=== PATIENT | female | born 1945 | race Caucasian/White ===

== ENCOUNTER 2020-10-19 13:39 | Outpatient (CLI) | payer MEDICARE, BC, SELFPAY ==
--- NOTE | 2020-10-19 13:46 | MM_ITS ---
WS: [id number] BILATERAL SCREENING DIGITAL MAMMOGRAM WITH CAD HISTORY: SCREENING COMPARISON: 05/05/2019 and 02/12/2018 Bilateral CC and MLO views submitted. Computer aided detection analyzed. Breast composition: The breasts are heterogeneously dense, which may obscure small masses. No suspici ous masses, microcalcifications or architectural distortion. Focal asymmetry posterior to the LEFT ni pple is similar to the prior study from 2018. MM/[place] [id number] IMPRESSION: BI-RADS: 2-Benign FOLLOW UP: 1 Year Follow-up
== END 2020-10-19 13:40 | disposition home or self-care (01) ==
LOC: RADSHAW 13:44
PROVIDERS: Family Provider Family Medicine; PCP Family Medicine; Visit Provider Nurse Practitioner Family
DX: Z12.31 Encounter for screening mammogram for malignant neoplasm of breast (principal)
CPT/HCPCS: 77067

== ENCOUNTER 2021-11-15 10:56 | Inpatient (IN) | payer MEDICARE, BC, SELFPAY ==
[2021-11-15] VITALS (10 sets, daily range): BP systolic 104–149; BP diastolic 49–75; PULSE 65–89; RESP 16–20; TEMP 36.7–36.9; O2SAT 93–97
--- NOTE | 2021-11-15 11:34 | CT_ITS ---
WS: [id number] CT ABDOMEN AND PELVIS WITH CONTRAST HISTORY: RLQ abd pain TECHNIQUE: Imaging performed of the abdomen and pelvis with IV contrast. Single phase imaging of the abdomen. Coronal and sagittal reformats are submitted. All CT scans at [facility] use at [address] one of these dose optimization techniques: automated exposure control; mA and/or kV adjustment per patient size (includes targeted exams where dose is matched to clinical indication); or iterative re construction. IV CONTRAST: Omnipaque 300; 50 mL IV. Oral contrast: No DLP: 1625.05 mGy.cm COMPARISON: None available. Lower thorax: 2 Heart is normal size. No hiatal hernia. Liver/biliary system: Normal size with no intrahepatic dilatation. Gallbladder: Status post cholecystectomy. Pancreas: Normal size pancreas and pancreatic duct. No adjacent inflammation. Spleen: Normal size spleen. No mass or infarct. Adjacent splenule. Adrenal glands: Normal. Right kidney: Mild perinephric stranding. Left kidney: Mild perinephric stranding. Cortical 10 mm cyst mid kidney. Aorta: Normal. Lymphadenopathy: None. Free fluid: Very tiny amount of free fluid in the RIGHT lower quadrant. There is a very small 5 mm no dule along the RIGHT paracolic gutter which is very nonspecific. GI tract: Stomach and small bowel are not distended or obstructed. The appendix is dilated. The appen rosaline measures 9 mm in diameter. Inflammation at the base of the appendix extends into the cecum and th ere is also inflammation in the distal small bowel. Increased soft tissue in the cecum extends deep w ithin the pelvis. This is probably fluid retained fecal material. Abdominal wall: Unremarkable abdominal wall. No hernia. Pelvis: No large amount of free fluid in the pelvis. Nondistended urinary bladder. There is mild infl ammation in the RIGHT lower quadrant from the appendicitis. Bones: Unremarkable. CT/CT abdomen pelvis w con* [id number] IMPRESSION: 1. Acute appendicitis. The inflammation extends minimally into the cecum and t he terminal ileum. There is moderate distention of the cecum with soft tissue. This is probably fluid and fecal retention. Possibility of a superimposed mass resulting in appendicitis should be considered and evaluated during surgery. 2. Prior cholecystectomy.
--- NOTE | 2021-11-15 11:35 | ED_ITS ---
HPI - Abdominal Pain General: Chief Complaint: Abdominal Pain Stated Complaint: pain in abd right area Time Seen by Provider: 11/15/21 11:25 History of Present Illness: Patient comes in with vomiting, diarrhea, and abdominal pain. States that yesterday she woke up nauseated and dry heaving. States she was having epigastric/periumbilical cramping sharp abdominal pain that was constant with diarrhea. States that started to ease up, however the pain then migrated to the right side of her abdomen. Associated Symptoms: Reports diarrhea and nausea; Denies dysuria and fever(s) Review of Systems Const: Denies: fever(s) or body aches Eyes: Denies: change in vision or blurry vision ENMT: Denies: throat pain or odynophagia Card: Denies: chest pain or palpitations Resp: Denies: dyspnea or productive cough GI: Reports: abdominal pain, nausea and diarrhea : Denies: flank pain or dysuria Musc: Denies: neck pain or back pain Skin/Breast: Denies: rash or pruritus Neuro: Denies: headache(s) or numbness in extremities Psych: Denies: anxiety or change in appetite Endo: Denies: polyuria or excessive sweating PFSH ED PFSH: Medical History Atrial fibrillation GERD (gastroesophageal reflux disease) Surgical History S/P cholecystectomy S/P hysterectomy Family History Other CAD (coronary artery disease) Cancer Social History Smoking and tobacco status: never smoked Alcohol intake: current Alcohol intake frequency: other Physical Exam Const: COMMON NORMALS: no acute distress, patient oriented x3, healthy appearing and alert HENMT: COMMON NORMALS: normocephalic and atraumatic HEAD & SCALP: normocephalic and atraumatic Eye: COMMON NORMALS: Equal, round and reactive pupils present and EOMs intact bilaterally PUPIL: Yes Equal, round and reactive pupils present Neck/C-Spine: COMMON NORMALS: full ROM and supple Resp: COMMON NORMALS: normal respiratory effort, No retractions and No use of accessory muscles Cardio: COMMON NORMALS: regular rate and regular rhythm RATE: regular rate RHYTHM: regular rhythm GI: COMMON NORMALS: Soft to palpation PALPATION: Yes Soft to palpation OTHER: Right lower quadrant tenderness to palpation Back/Pelvis: COMMON NORMALS: thoracic and lumbar spine normal to inspection and no thoracic nor lumbar tenderness Extremity: COMMON NORMALS: normal to inspection and full ROM Neuro: COMMON NORMALS: patient oriented x3 SENSORIUM/ORIENTATION: Yes alert Psych: COMMON NORMALS: mental status grossly normal and cooperative Skin: COMMON NORMALS: no rashes or lesions noted and no wounds GENERAL SKIN EXAM: no rashes or lesions noted Course Vital Signs: Vital signs: Vital Signs Temperature 98.0 F 11/15/21 11:01 Pulse Rate 65 11/15/21 11:01 Respiratory Rate 16 11/15/21 11:01 Blood Pressure 129/75 11/15/21 11:01 Pulse Oximetry 95 11/15/21 11:01 MDM - Abdominal Pain Medical Decision Making Patient comes in with vomiting, diarrhea, and abdominal pain. States that yesterday she woke up nauseated and dry heaving. States she was having epi gastric/periumbilical cramping sharp abdominal pain that was constant with diarrhea. States that started to ease up, however the pain then migrated to the right side of her abdomen. On physical exam she has tenderness palpation the right lower quadrant. Will check labs, give IV fluids, treat nausea with IV Zofran, CT, and reassess. On reassessment I talked to the patient about the test results. I discussed the case with surgery. We will start her on antibiotics, and admit to medicine with surgery consult for further work-up and treatment of her acute appendicitis. Lab Data : 11/15/21 11:20 11/15/21 11:20 Labs/Radiology: Radiology Impressions Abdomen/Pelvis CT 11/15/21 11:34 IMPRESSION: 1. Acute appendicitis. The inflammation extends minimally into the cecum and the terminal ileum. There is moderate distention of the cecum with soft tissue. This is probably fluid and fecal retention. Possibility of a superimposed mass resulting in appendicitis should be considered and evaluated during surgery. 2. Prior cholecystectomy. Laboratory Results WBC 14.9 10^3/uL (4.0-10.0) H 11/15/21 11:20 RBC 4.64 10^6/uL (4.1-5.3) 11/15/21 11:20 Hgb 14.8 g/dL (11.5-15.3) 11/15/21 11:20 Hct 45.5 % (37.0-47.0) 11/15/21 11:20 MCV 98.1 fl (81-99) 11/15/21 11:20 MCH 31.9 pg (28.0-34.0) 11/15/21 11:20 MCHC 32.5 g/dL (30.0-36.0) 11/15/21 11:20 RDW 12.7 % (12.1-15.1) 11/15/21 11:20 Plt Count 335 10^3/cmm (130-400) 11/15/21 11:20 MPV 10.3 fL (7.4-10.4) 11/15/21 11:20 Neut % (Auto) 80.2 % 11/15/21 11:20 Lymph % (Auto) 12.4 % 11/15/21 11:20 [place] % (Auto) 6.5 % 11/15/21 11:20 Eos % (Auto) 0.3 % 11/15/21 11:20 Baso % (Auto) 0.3 % 11/15/21 11:20 Neut # (Auto) 11.90 10^3/uL (1.8-7.7) H 11/15/21 11:20 Lymph # (Auto) 1.9 10^3/uL (0.8-4.8) 11/15/21 11:20 [place] # (Auto) 1.0 10^3/uL (0.2-0.9) H 11/15/21 11:20 Eos # (Auto) 0.1 10^3/uL (0.0-0.8) 11/15/21 11:20 Baso # (Auto) 0.1 10^3/uL (0.0-0.1) 11/15/21 11:20 Nucleated RBC % (auto) 0 % 11/15/21 11:20 Nucleated RBCs # 0.0 /100WBC 11/15/21 11:20 Sodium 140 mmol/L (136-145) 11/15/21 11:20 Potassium 4.0 mmol/L (3.5-5.1) 11/15/21 11:20 Chloride 102 mmol/L (98-107) 11/15/21 11:20 Carbon Dioxide 28 mmol/L (22-29) 11/15/21 11:20 Anion Gap 14.0 (5-19) 11/15/21 11:20 BUN 10 mg/dL (8-23) 11/15/21 11:20 Creatinine 0.9 mg/dL (0.5-0.9) 11/15/21 11:20 GFR Calculation Not Reportable 11/15/21 11:20 Glucose 94 mg/dL (65-115) 11/15/21 11:20 Calculated Osmolality 289 mOsm/kg (285-295) 11/15/21 11:20 Calcium 9.6 mg/dL (8.5-10.5) 11/15/21 11:20 Total Bilirubin 0.7 mg/dL (0.15-1.2) 11/15/21 11:20 AST 54 U/L (0-32) H 11/15/21 11:20 ALT 69 U/L (0-33) H 11/15/21 11:20 Alkaline Phosphatase 100 IU/L (35-105) 11/15/21 11:20 Total Protein 8.4 g/dL (6.6-8.7) 11/15/21 11:20 Albumin 4.8 g/dL (3.5-5.2) 11/15/21 11:20 Globulin 3.6 g/dL (1.3-4.6) 11/15/21 11:20 Lipase 31 U/L (13-60) 11/15/21 11:20 Discharge Plan Discharge Patient Disposition: Admitted As Inpatient Clinical Impression: Acute appendicitis Condition: Stable Coding Level of Care Code 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
[2021-11-15] MEDS: ondansetron 2 mg/ML SDV 2 mL 4 MG IVP (11:41)
[2021-11-15] MEDS: sodium chloride 0.9% 1,000 ML 999 ML IV (11:41)
[2021-11-15 11:59] LABS: Basophils # 0.1 10^3/uL (0.0-0.1); Basophils % 0.3 %; Eosinophils # 0.1 10^3/uL (0.0-0.8); Eosinophils % 0.3 %; Hematocrit 45.5 % (37.0-47.0); Hemoglobin 14.8 g/dL (11.5-15.3); Lymphocytes # 1.9 10^3/uL (0.8-4.8); Lymphocytes % 12.4 %; Mean Corpuscular HGB Conc 32.5 g/dL (30.0-36.0); Mean Corpuscular Hemoglobin 31.9 pg (28.0-34.0); Mean Corpuscular Volume 98.1 fl (81-99); Mean Platelet Volume 10.3 fL (7.4-10.4); Monocytes % 6.5 %; Neutrophils % 80.2 %; Nucleated Red Blood Cells % 0 %; Platelet Count 335 10^3/cmm (130-400); Red Blood Count 4.64 10^6/uL (4.1-5.3); Red Cell Distribution Width 12.7 % (12.1-15.1); White Blood Count 14.9 10^3/uL (4.0-10.0)
[2021-11-15 12:13] LABS: Alanine Aminotransferase 69 U/L (0-33); Albumin Level 4.8 g/dL (3.5-5.2); Alkaline Phosphatase 100 IU/L (35-105); Aspartate Amino Transferase 54 U/L (0-32); Blood Urea Nitrogen 10 mg/dL (8-23); Calcium 9.6 mg/dL (8.5-10.5); Carbon Dioxide 28 mmol/L (22-29); Chloride 102 mmol/L (98-107); Globulin 3.6 g/dL (1.3-4.6); Glucose 94 mg/dL (65-115); Lipase 31 U/L (13-60); Osmolality Calculated 289 mOsm/kg (285-295); Sodium 140 mmol/L (136-145); Total Bilirubin 0.7 mg/dL (0.15-1.2); Total Protein 8.4 g/dL (6.6-8.7)
--- NOTE | 2021-11-15 14:23 | P.CONIM_ITS ---
Providers/Reason For Consult Consulting Physician/Specialty*: Nicholas Murray /Medicine Reason for Consult*: Management of Medical comorbid conditions Requesting Physician: Alec Alcaraz Attending Physician: Nicholas Murray MD Primary Care Provider: Shakira Maxwell MD History of Present Illness History of Present Illness Marge Burr is a 76 year old female with PMH of A.Fib on xaralto for Ac came in with c/o right lower quadrant abdominal pain started since yesterday morning, accompanied with nausea as well as dry heaves. Since yesterday the pain has progressively worsened. Upon arrival in the ER she was worked up for above-mentioned complaint Pertinent Imaging Studies: CT abdomen pelvis w con: 1.? Acute appendicitis. The inflammation extends minimally into the cecum and the terminal ileum. There is moderate distention of the cecum with soft tissue. This is probably fluid and fecal retention. Possibility of a superimposed mass resulting in appendicitis should be considered and evaluated during surgery. 2.? Prior cholecystectomy. Pertinent Labs : WBC: 14.9 H&H : 14.8/45 , PLT : 335 , Na: 140 K: 4 BUN/SCR : 10/0.9 Review of Systems General: Reports: 10 or more systems reviewed and unremarkable except in HPI and below Const: Denies: fever(s), chills, body aches, change in appetite or diaphoresis Card: Denies: palpitations, edema, swelling of feet/ankles, dyspnea on exertion, orthopnea or leg pain with exertion Resp: Denies: dyspnea, productive cough, wheezing or pain on inspiration GI: Reports: abdominal pain, nausea and vomiting; Denies: diarrhea or constipation : Denies: flank pain Musc: Denies: back pain, extremity pain or extremity swelling Neuro: Denies: headache(s), difficulty walking or confusion Medications/Allergies Home Medications Medication Instructions Recorded Confirmed Last Taken Type flecainide 50 mg tablet 50 mg PO Q12H #180 tab 08/07/21 11/15/21 11/15/21 Rx metoprolol tartrate 25 mg tablet 25 mg PO BID #180 tab 08/07/21 11/15/21 11/15/21 Rx rivaroxaban 20 mg tablet (Xarelto) 20 mg PO DAILY #90 tab 08/07/21 11/15/21 11/15/21 Rx Allergies Allergy/AdvReac Type Severity Reaction Status Date / Time morphine Allergy Unknown Verified 11/15/21 11:06 PFSH Acute PFSH: Medical History Atrial fibrillation GERD (gastroesophageal reflux disease) Surgical History S/P cholecystectomy S/P hysterectomy Family History Other CAD (coronary artery disease) Cancer Social History Smoking and tobacco status: never smoked Alcohol intake: current Alcohol intake frequency: other Vitals/I&O/Wt Last Vital Signs Temp 98.0 F 11/15/21 11:01 Pulse 65 11/15/21 11:01 Resp 16 11/15/21 11:01 BP 129/75 11/15/21 11:01 Pulse Ox 95 11/15/21 11:01 Weight last 48 hrs Weight 70.307 kg Physical Exam Const: COMMON NORMALS: patient oriented x3 HENMT: COMMON NORMALS: normocephalic and atraumatic HEAD & SCALP: normocephalic and atraumatic Resp: COMMON NORMALS: clear to auscultation bilaterally AUSCULTATION: clear to auscultation bilaterally Cardio: COMMON NORMALS: regular rate, regular rhythm, S1 normal heart sound present, S2 normal heart sound present, No gallops present (Cardio), No murmurs present (Cardio), No rub (Cardio) and Peripheral pulses 2+ throughout RATE: regular rate RHYTHM: regular rhythm HEART SOUNDS: S1 normal heart sound present and S2 normal heart sound present PERIPHERAL PULSES: Peripheral pulses 2+ throughout GI: AUSCULTATION: Yes normoactive bowel sounds RECTAL EXAM: deferred OTHER: Right lower quadrant tenderness present, no rebound tenderness. Extremity: COMMON NORMALS: no clubbing, cyanosis or edema and no pedal edema Neuro: COMMON NORMALS: patient oriented x3 Data : 11/15/21 11:20 11/15/21 11:20 A&P Assessment and plan (1) Atrial fibrillation: Status: Acute (2) GERD (gastroesophageal reflux disease): Status: Acute Qualifiers: Esophagitis presence: esophagitis presence not specified Qualified Code(s): K21.9 - Gastro-esophageal reflux disease without esophagitis (3) Acute appendicitis: Status: Acute Plan 76 year old female with PMH of A.Fib on xaralto for Ac came in with c/o right lower quadrant abdominal pain started since yesterday morning, accompanied with nausea as well as dry heaves. Assessment: Acute appendicitis: Surgery on board Atrial fibrillation : Patient took Eliquis yesterday evening. Currently Eliquis on hold Continue metoprolol and flecainide. CODE STATUS: Full code. Consult Attestations Medical Necessity Statement: Per Primary Team Time Spent in Patient Care: Greater than 35 minutes (>than 50% of time spent in counselling and/or direct pt care on unit) . Coding Level of Care Code Acute Motion Pictures Cartoonist for g Fwd Exam Detailed Diagnoses Atrial fibrillation I48.91 GERD (gastroesophageal reflux disease) K21.9 Esophagitis presence: esophagitis presence not specified Acute appendicitis K35.80
[2021-11-15] MEDS: piperacillin-tazobactam 3.375 GM in sodium chloride 0.9% (plus) 50 ML IV ×2 (14:32→21:01)
[2021-11-15] MEDS: sodium chloride 0.9% 1,000 ML 75 ML IV (15:21)
--- NOTE | 2021-11-15 17:18 | P.CONIM_ITS ---
Providers/Reason For Consult Consulting Physician/Specialty*: Hospitalist service Reason for Consult*: Acute appendicitis Attending Physician: Nicholas Murray MD Primary Care Provider: Shakira Maxwell MD History of Present Illness History of Present Illness Marge Burr is a 76 year old female who presented to the ER today with right lower quadrant pain since yesterday morning. Patient had some nausea and dry heaves but currently she would like to have something. No similar episodes in the past. She had some loose stools yesterday morning and initially thought she had food poisoning. The pain progressively worsened and therefore she presented to the ER for further evaluation where CT scan showed acute appendicitis. She is on Eliquis for atrial fibrillation. Patient is admitted since she took her last Eliquis yesterday evening and is currently on Zosyn Medications/Allergies Home Medications Medication Instructions Recorded Confirmed Last Taken Type flecainide 50 mg tablet 50 mg PO Q12H #180 tab 08/07/21 11/15/21 11/15/21 Rx metoprolol tartrate 25 mg tablet 25 mg PO BID #180 tab 08/07/21 11/15/21 11/15/21 Rx rivaroxaban 20 mg tablet (Xarelto) 20 mg PO DAILY #90 tab 08/07/21 11/15/21 11/15/21 Rx Allergies Allergy/AdvReac Type Severity Reaction Status Date / Time morphine Allergy Unknown Verified 11/15/21 11:06 Current Medications Generic Name Dose Route Start Last Admin Trade Name Freq PRN Reason Stop Dose Admin Sodium Chloride 1,000 mls @ 75 mls/hr 11/15/21 14:15 11/15/21 15:21 Sodium Chloride 0.9% IV 75 mls/hr .[id number] REYNOLD Administration PFSH Acute PFSH: Medical History Atrial fibrillation GERD (gastroesophageal reflux disease) Surgical History S/P cholecystectomy S/P hysterectomy Family History Other CAD (coronary artery disease) Cancer Social History Smoking and tobacco status: never smoked Alcohol intake: current Alcohol intake frequency: other Vitals/I&O/Wt Last Vital Signs Temp 98.5 F 11/15/21 15:04 Pulse 73 11/15/21 16:45 Resp 16 11/15/21 15:04 BP 107/61 11/15/21 15:04 Pulse Ox 94 11/15/21 16:45 11/15/21 11/15/21 11/15/21 06:59 14:59 22:59 Intake Total 1000 / 1000 Balance 1000 / 1000 Weight last 48 hrs Weight 155 lb Physical Exam Narrative: HEENT: Normocephalic Eye: Sclera /conjunctiva normal Abdomen: Soft to palpation, tender right lower quadrant with voluntary guarding, no rigidity Neurological: Oriented to place person and time Skin: Intact, no lesions appreciated on gross exam Data : 11/15/21 11:20 11/15/21 11:20 Micro: Microbiology 11/15/21 14:38 Blood Culture - Preliminary Blood SPECIMEN COLLECTED 11/15/21 14:36 Blood Culture - Preliminary Blood SPECIMEN COLLECTED A&P Assessment and plan (1) Acute appendicitis: 76 year old female who presents with right lower quadrant pain since yesterday morning, she was tender to palpation the right lower quadrant. WBC was 14.[address] abdomen pelvis showed acute appendicitis without evidence of perforation/abscess. We will plan for laparoscopic possible open appendectomy tomorrow since she took her last dose of Eliquis yesterday evening. Discussed with the patient about the higher risk of bleeding since she is on Eliquis. Also discussed with the patient the possibility of proceeding to surgery sooner if she were to develop any peritonitis or hemodynamic instability. Procedure, risks, benefits and alternatives have been discussed with the patient who wishes to proceed with surgery. Clear liquid diet N.p.o. after midnight Continue IV Zosyn Status: Acute (2) Atrial fibrillation: Stop Eliquis Status: Acute Coding Level of Care Code Acute Electrical Engineer for [facility] Diagnoses Acute appendicitis K35.80 Atrial fibrillation I48.91
[2021-11-15] MEDS: flecainide 100 mg Tablet 50 MG PO (18:31)
[2021-11-15] MEDS: metoprolol tartrate 25 mg Tablet PO (21:01)
[2021-11-16] VITALS (14 sets, daily range): BP systolic 99–155; BP diastolic 46–77; PULSE 0–79; RESP 14–19; TEMP 36.3–37.1; O2SAT 90–99
[2021-11-16] MEDS: flecainide 100 mg Tablet 50 MG PO (04:13)
[2021-11-16] MEDS: piperacillin-tazobactam 3.375 GM in sodium chloride 0.9% (plus) 50 ML IV ×3 (04:13→21:26)
[2021-11-16 04:37] LABS: Basophils % 0.4 %; Eosinophils # 0.1 10^3/uL (0.0-0.8); Eosinophils % 1.1 %; Hematocrit 35.6 % (37.0-47.0); Hemoglobin 11.3 g/dL (11.5-15.3); Lymphocytes # 1.5 10^3/uL (0.8-4.8); Lymphocytes % 15.7 %; Mean Corpuscular HGB Conc 31.7 g/dL (30.0-36.0); Mean Corpuscular Volume 97.8 fl (81-99); Mean Platelet Volume 10.2 fL (7.4-10.4); Monocytes # 0.7 10^3/uL (0.2-0.9); Monocytes % 7.1 %; Neutrophils # 7.09 10^3/uL (1.8-7.7); Neutrophils % 75.3 %; Nucleated Red Blood Cells % 0 %; Platelet Count 225 10^3/cmm (130-400); Red Blood Count 3.64 10^6/uL (4.1-5.3); Red Cell Distribution Width 12.5 % (12.1-15.1); White Blood Count 9.4 10^3/uL (4.0-10.0)
[2021-11-16 05:04] LABS: Anion Gap 13.6 (5-19); Blood Urea Nitrogen 8 mg/dL (8-23); Calcium 8.3 mg/dL (8.5-10.5); Carbon Dioxide 23 mmol/L (22-29); Chloride 104 mmol/L (98-107); Glucose 78 mg/dL (65-115); Osmolality Calculated 281 mOsm/kg (285-295); Potassium 3.6 mmol/L (3.5-5.1); Sodium 137 mmol/L (136-145)
[2021-11-16] MEDS: metoprolol tartrate 25 mg Tablet PO ×2 (09:29→21:26)
--- NOTE | 2021-11-16 09:51 | PC.CHAP ---
Pastoral Care Encounter/Spiritual Assessment Type of Contact [] Declined wood heel finisher visit [] Patient/Family/Request visit [] Outpatient visit [] Follow-up visit [] Physician referral [] Code/Alert [] Routine visit [] Staff referral [] Actively dying [] Patient sleeping [] Family support [] [] Out of room [] Palliative care [] [] Receiving care in room [] Pre-surgical visit [] Trauma [] Long length of stay [] ICU visit [] Other: Relational/Emotional Strength [] Patient feels connected with others/family/visitors/staff [] Distress [] Loneliness/isolation [] Abandonment Spirituality of Patient [] Person of [place]opatra [] Attends Church of their [place]opatra [] Believes in Prayer [] Reads Bible or Holiness materials [] There are Spiritual issues to be addressed Radio Rigger Interventions [] Prayer [] Active listening [] Non-anxious presence [] Spiritual/emotional support [] Crisis/trauma care [] Spiritual counseling [] Bereavement support [] Provided bereavement packet [] Provided Bible/devotional materials [] Provided toy/stuffed animal, coloring book to patient or family member [] Provided Communion [] Anointing/[place] [] Salvation [] Completed spiritual assessment [] Other: Impact on Illness or Injury [] Angry [] Fearful [] Anxious [] Often cries [] Exhaustion [] Unable to work [] Unable to attend nondenominational [] Unable to walk/stand [] Unable to read [] Unable to drive [] Unable to eat/drink [] Unable to sleep [] Unable to be with family [] Patient intubated [] Other: Summary Time spent with patient Pastoral Care Encounter/Spiritual Assessment Type of Contact [] Declined wood heel finisher visit [] Patient/Family/Request visit [] Outpatient visit [] Follow-up visit [] Physician referral [] Code/Alert [x] Routine visit [] Staff referral [] Actively dying [x] Patient sleeping [] Family support [] [] Out of room [] Palliative care [] [] Receiving care in room [] Pre-surgical visit [] Trauma [] Long length of stay [] ICU visit [] Other: Relational/Emotional Strength [] Patient feels connected with others/family/visitors/staff [] Distress [] Loneliness/isolation [] Abandonment Spirituality of Patient [] Person of [place] [] Attends Church of their [place] [] Believes in Prayer [] Reads Bible or Holiness materials [] There are Spiritual issues to be addressed Radio Rigger Interventions [] Prayer [] Active listening [] Non-anxious presence [] Spiritual/emotional support [] Crisis/trauma care [] Spiritual counseling [] Bereavement support [] Provided bereavement packet [] Provided Bible/devotional materials [] Provided toy/stuffed animal, coloring book to patient or family member [] Provided Communion [] Anointing/[place] [] Salvation [] Completed spiritual assessment [] Other: Impact on Illness or Injury [] Angry [] Fearful [] Anxious [] Often cries [] Exhaustion [] Unable to work [] Unable to attend nondenominational [] Unable to walk/stand [] Unable to read [] Unable to drive [] Unable to eat/drink [] Unable to sleep [] Unable to be with family [] Patient intubated [] Other: Summary Time spent with patient
--- NOTE | 2021-11-16 10:41 | PM.PN ---
Subjective Subjective: Patient was seen and examined this morning, complaining of abdominal pain on ambulation. No other acute events. Medications: Medication Review Details: Generic Name Dose Route Start Last Admin Trade Name Phuong PRN Reason Stop Dose Admin Flecainide Acetate 50 mg 11/15/21 17:00 11/16/21 04:13 Flecainide 100 M g Tablet PO 50 mg Q12H REYNOLD Administration Sodium Chloride 1,000 mls @ 75 ml s/hr 11/15/21 14:15 11/16/21 03:45 Sodium Chloride 0.9% IV Not Given .[id number] REYNOLD Piperacillin Sod/T azobactam 50 mls @ 12.5 mls /hr 11/15/21 20:30 11/16/21 04:13 Sod 3.375 gm/ So dium Chloride IV 12.5 mls/hr Q8H REYNOLD Administration Protocol Metoprolol Tartrat e 25 mg 11/15/21 21:00 11/16/21 09:29 Metoprolol Tartr ate 25 Mg Tablet PO 25 mg BID@0900,2100 REYNOLD Administration Vitals/I&O/Wt Last Vital Signs Temp 98.1 F 11/16/21 08:29 Pulse 66 11/16/21 08:29 Resp 16 11/16/21 08:29 BP 106/64 11/16/21 08:29 Pulse Ox 90 11/16/21 08:29 11/15/21 11/16/21 11/16/21 22:59 06:59 14:59 Intake Total 653.75 / 1653.75 370 / 3.75 Balance 653.75 / 1653.75 370 / 2022.75 Weight last 48 hrs Weight 70.307 kg Physical Exam Const: COMMON NORMALS: patient oriented x3 HENMT: COMMON NORMALS: normocephalic and atraumatic HEAD & SCALP: normocephalic and atraumatic Resp: COMMON NORMALS: clear to auscultation bilaterally AUSCULTATION: clear to auscultation bilaterally Cardio: COMMON NORMALS: regular rate, regular rhythm, S1 normal heart sound present, S2 normal heart sound present, No gallops present (Cardio), No murmurs present (Cardio), No rub (Cardio) and Peripheral pulses 2+ throughout RATE: regular rate RHYTHM: regular rhythm HEART SOUNDS: S1 normal heart sound present and S2 normal heart sound present PERIPHERAL PULSES: Peripheral pulses 2+ throughout GI: AUSCULTATION: Yes normoactive bowel sounds RECTAL EXAM: deferred OTHER: Right lower quadrant tenderness present, no rebound tenderness. Extremity: COMMON NORMALS: no clubbing, cyanosis or edema and no pedal edema Neuro: COMMON NORMALS: patient oriented x3 Data : 11/16/21 03:32 11/16/21 03:32 Micro: Microbiology 11/15/21 14:38 Blood Culture - Preliminary Blood SPECIMEN COLLECTED 11/15/21 14:36 Blood Culture - Preliminary Blood SPECIMEN COLLECTED A&P Assessment and plan (1) Atrial fibrillation: Status: Acute (2) GERD (gastroesophageal reflux disease): Status: Acute Qualifiers: Esophagitis presence: esophagitis presence not specified Qualified Code(s): K21.9 - Gastro-esophageal reflux disease without esophagitis (3) Acute appendicitis: Status: Acute Plan 76 year old female with PMH of A.Fib on xaralto for Ac came in with c/o right lower quadrant abdominal pain started since yesterday morning, accompanied with nausea as well as dry heaves. Assessment: Acute appendicitis: Surgery on board Atrial fibrillation : Patient took Eliquis yesterday evening. Currently Eliquis on hold Continue metoprolol and flecainide. CODE STATUS: Full code. Attestations Medical Necessity Statement*: Per primary team. Coding Level of Care Code Acute Sap Bw Bi Developer for [facility] Diagnoses Atrial fibrillation I48.91 GERD (gastroesophageal reflux disease) K21.9 Esophagitis presence: esophagitis presence not specified Acute appendicitis K35.80
[2021-11-16] MEDS: ondansetron 2 mg/ML SDV 2 mL 4 MG IVP ×2 (10:54→16:58)
[2021-11-16] MEDS: sodium chloride 0.9% 1,000 ML 30 ML IV (10:54)
--- NOTE | 2021-11-16 11:54 | PM.PN ---
Subjective Subjective: No issues overnight, has some nausea, pain in the lower abdomen when she moves Medications: Reviewed: Yes Vitals/I&O/Wt Last Vital Signs Temp 98.3 F 11/16/21 10:35 Pulse 63 11/16/21 10:35 Resp 18 11/16/21 10:35 BP 109/46 11/16/21 10:35 Pulse Ox 91 11/16/21 10:35 11/15/21 11/16/21 11/16/21 22:59 06:59 14:59 Intake Total 653.75 / 3.75 370 / 3.75 Balance 653.75 / 2022.75 370 / 2022.75 Weight last 48 hrs Weight 155 lb Physical Exam Narrative: Abdomen: Soft, tender, RLQ Data : 11/16/21 03:32 11/16/21 03:32 Micro: Microbiology 11/15/21 14:38 Blood Culture - Preliminary Blood SPECIMEN COLLECTED 11/15/21 14:36 Blood Culture - Preliminary Blood SPECIMEN COLLECTED A&P Assessment and plan (1) Acute appendicitis: Plan for laparoscopic possible open appendectomy Procedure, risks, benefits and alternatives have been discussed with the patient who wishes to proceed with surgery. Status: Acute Attestations Medical Necessity Statement*: Acute appendicitis Coding Level of Care Code Acute Stencil Sprayer for Fidencio Isaac Diagnoses Acute appendicitis K35.80
--- NOTE | 2021-11-16 15:14 | P.ANESASSM_ITS ---
Pre-Anesthetic Assessment Height/Weight: Height 1.65 m Weight 70.307 kg Temp Pulse Resp BP Pulse Ox 98.3 F 63 18 109/46 91 11/16/21 10:35 11/16/21 10:35 11/16/21 10:35 11/16/21 10:35 11/16/21 10:35 Preop Diagnosis: Acute appendicitis Operation Date: 11/16/21 13:00 Proposed Procedures p Laparoscopic Appendectomy(Not Applicable) - Jez Alcaraz MD Familial anesthetic complications: none Was Beta Alex taken within 24 hours: Yes Was Clonidine taken within 24 hours: N/A Last intake: Intake Last Liquid Date 11/16/21 Last Liquid Time 04:00 Last Solid Date 11/15/21 Last Solid Time 21:00 Social No alcohol and No tobacco Exam alert, oriented x 3, clear to auscultation bilaterally and regular rate & rhythm Airway Submandibular: within normal limits Cervical ROM: within normal limits Mallampati: Class II Dentition: full Comments: Comments: chipped teeth Pulmonary None reported CV/HEM Atrial Fibrillation None reported Hepatic None reported GI Gastroesophageal Reflux Disease appendicitis Metabolic None reported Musc/skel None reported Neuropsych None reported Anesthetic Plan ASA status: 3 (76 year old female with afib and GERD on anticoagulation ) Anesthesia: Anesthesia Evaluation and General Other: We discussed risk and benefits of general anesthesia including PONV, sore throat (sometimes severe), corneal abrasion, positioning and peripheral nerve injuries, life threatening allergic reaction, post operative ICU admission requiring prolonged intubation, stroke, heart attack, , and rare incidences of recall. Patient consents to proceed with general anesthesia. Risk of > 500 ml blood loss (7ml/kg in children): No Medications/Allergies Home Medications Medication Instructions Recorded Confirmed Last Taken Type flecainide 50 mg tablet 50 mg PO Q12H #180 tab 08/07/21 11/15/21 11/15/21 Rx metoprolol tartrate 25 mg tablet 25 mg PO BID #180 tab 08/07/21 11/15/21 11/15/21 Rx rivaroxaban 20 mg tablet (Xarelto) 20 mg PO DAILY #90 tab 08/07/21 11/15/2110/22 Rx Allergies Allergy/AdvReac Type Severity Reaction Status Date / Time morphine Allergy Unknown Verified 11/15/21 11:06 Current Medications Generic Name Dose Route Start Last Admin Trade Name Freq PRN Reason Stop Dose Admin Flecainide Acetate 50 mg 11/15/21 17:00 11/16/21 04:13 Flecainide 100 Mg Tablet PO 50 mg Q12H REYNOLD Administration Sodium Chloride 1,000 mls @ 75 mls/hr 11/15/21 14:15 11/16/21 03:45 Sodium Chloride 0.9% IV Not Given .[id number] REYNOLD Piperacillin Sod/Tazobactam 50 mls @ 12.5 mls/hr 11/15/21 20:30 11/16/21 15:04 Sod 3.375 gm/ Sodium Chloride IV Infused Q8H REYNOLD Infusion Protocol Sodium Chloride 1,000 mls @ 30 mls/hr 11/16/21 11:00 11/16/21 10:54 Sodium Chloride 0.9% IV 11/17/21 10:59 30 mls/hr .Q24H REYNOLD Administration Metoprolol Tartrate 25 mg 11/15/21 21:00 11/16/21 09:29 Metoprolol Tartrate 25 Mg Tablet PO 25 mg BID@0900,2100 REYNOLD Administration Ondansetron HCl 4 mg 11/16/21 10:48 11/16/21 10:54 Ondansetron 2 Mg/Ml Sdv 2 Ml IVP 4 mg Q5M PRN Administration NAUSEA AND VOMITING Additional Medication Information Generic Name Dose Route Start Last Admin Trade Name Coreyq PRN Reason Stop Dose Admin Flecainide Acetate 50 mg 11/15/21 17:00 11/16/21 04:13 Flecainide 100 Mg Tablet PO 50 mg Q12H REYNOLD Administration Sodium Chloride 1,000 mls @ 75 mls/hr 11/15/21 14:15 11/16/21 03:45 Sodium Chloride 0.9% IV Not Given .[id number] REYNOLD Piperacillin Sod/Tazobactam 50 mls @ 12.5 mls/hr 11/15/21 20:30 11/16/21 04:13 Sod 3.375 gm/ Sodium Chloride IV 12.5 mls/hr Q8H REYNOLD Administration Protocol Metoprolol Tartrate 25 mg 11/15/21 21:00 11/16/21 09:29 Metoprolol Tartrate 25 Mg Tablet PO 25 mg BID@0900,2100 REYNOLD Administration PENDING SALE TO [facility] Anesthesia Medical History Atrial fibrillation GERD (gastroesophageal reflux disease) Surgical History S/P cholecystectomy S/P hysterectomy Family History Other CAD (coronary artery disease) Cancer Social History Smoking and tobacco status: never smoked Alcohol intake: current Alcohol intake frequency: other Data Anesthesia : 11/16/21 03:32 11/16/21 03:32 Short CBC 11/15/21 11/16/21 Range/Units 11:20 03:32 WBC 14.9 H 9.4 (4.0-10.0) 10^3/uL Hgb 14.8 11.3 L (11.5-15.3) g/dL Hct 45.5 35.6 L (37.0-47.0) % MCV 98.1 97.8 (81-99) fl Plt Count 335 225 D (130-400) 10^3/cmm Neut % (Auto) 80.2 75.3 % Neut # (Auto) 11.90 H 7.09 (1.8-7.7) 10^3/uL BMP 11/15/21 11/16/21 11:20 03:32 Sodium 140 137 Potassium 4.0 3.6 Chloride 102 104 Carbon Dioxide 28 23 BUN 10 8 Creatinine 0.9 0.9 Glucose 94 78 Calcium 9.6 8.3 L Liver Function 11/15/21 Range/Units 11:20 Total Bilirubin 0.7 (0.15-1.2) mg/dL AST 54 H (0-32) U/L ALT 69 H (0-33) U/L Alkaline Phosphatase 100 (35-105) IU/L Albumin 4.8 (3.5-5.2) g/dL Microbiology 11/15/21 14:38 Blood Culture - Preliminary Blood NEGATIVE TO DATE 11/15/21 14:36 Blood Culture - Preliminary Blood NEGATIVE TO DATE Cardiac Studies: No Data to Display
--- NOTE | 2021-11-16 16:11 | PM.OP ---
Operative Report Date of procedure: November 16, 2021 Pre-op diagnosis: Acute appendicitis Post-op diagnosis: Acute appendicitis Procedure done: Laparoscopic appendectomy Specimens removed/disposition: Appendix Surgeon: Jez Alcaraz Anesthesia: General Condition: stable Disposition: PACU Procedure: The patient was taken to the Operating Room and intubated under general anesthesia after iv antibiotic had been administered. Using a 15 blade, a 1-cm infraumbilical incision was made and using open Escobar technique, the peritoneal cavity was entered. A 12mm port with balloon was placed and 15 mm of pneumoperitoneum was created and 10-mm 30 degree scope was introduced. Two separate 5mm ports were placed in the left lower quadrant and suprapubic area under direct visualization. The appendix was noted in the right lower quadrant and appeared acutely inflamed. Using [place] forceps, an opening was made in the mesoappendix near the base of the appendix. An Endo HARRISON stapler 45mm long 3.5mm blue load was introduced to divide the appendix at it's base. Using electrocautery, the mesoappendix including the appendicular artery was divided. Initially there was some bleeding from the appendicular artery which was controlled with cautery and 10 mm clips. There was no bleeding noted and the staple line appeared intact after the right lower quadrant was irrigated with saline. EndoCatch bag was introduced to remove the appendix. All three ports were removed under direct visualization and there was no bleeding noted on the port sites. 10 cc of 0.5% Marcaine was infiltrated at the port sites. The fascia at the umbilical port was closed using figure of eight 0-Vicryl sutures and subcutaneous tissue was approximated using 3-0 Vicryl and skin at all 3 port sites was closed using 4-0 Monocryl and Dermabond. The patient was extubated and transferred to recovery room in stable condition.
--- NOTE | 2021-11-16 16:43 | ANE.PACU2 ---
Inpatient post-anesthesia follow up: Airway intact: Yes Vital signs: Temperature 97.4 F Pulse Rate 76 Respiratory Rate 16 Blood Pressure 151/60 Pulse Oximetry 92 Oxygen Delivery Me thod [ Room Air Current Rate & Del tiana] Oxygen Delivery Me thod Room Air Oxygen Flow Rate 6 Fraction of Inspir ed Oxygen Hydration adequate: Yes Nausea and vomiting: No Pain level: 4 Mental status: Baseline
[2021-11-16] MEDS: HYDROcodone-acetaminophen 5-325 mg Tablet 1 TAB PO (16:58)
--- NOTE | 2021-11-16 21:55 | PC.NURSE ---
Straight cath procedure done, 500 ml of clear urine returned, patient tolerated well. Patient still attempting to void.
[2021-11-16] MEDS: phenol oral Spray 177 mL 2 SPRAY MUCOUS MEM (23:26)
[2021-11-17] VITALS: BP 107/69; PULSE 72; RESP 18; TEMP 36.8; O2SAT 93
[2021-11-17] MEDS: HYDROcodone-acetaminophen 5-325 mg Tablet 1 TAB PO (01:44)
[2021-11-17 04:00] VITALS: BP 120/59; PULSE 70; RESP 18; TEMP 37; O2SAT 93
[2021-11-17] MEDS: piperacillin-tazobactam 3.375 GM in sodium chloride 0.9% (plus) 50 ML IV (04:09)
[2021-11-17 05:04] LABS: Basophils % 0.2 %; Hemoglobin 12.3 g/dL (11.5-15.3); Lymphocytes # 0.6 10^3/uL (0.8-4.8); Lymphocytes % 5.8 %; Mean Corpuscular HGB Conc 33.2 g/dL (30.0-36.0); Mean Corpuscular Hemoglobin 32.1 pg (28.0-34.0); Mean Corpuscular Volume 96.6 fl (81-99); Mean Platelet Volume 9.7 fL (7.4-10.4); Monocytes # 0.5 10^3/uL (0.2-0.9); Monocytes % 5.1 %; Neutrophils # 8.85 10^3/uL (1.8-7.7); Neutrophils % 88.6 %; Nucleated Red Blood Cells % 0 %; Platelet Count 296 10^3/cmm (130-400); Red Blood Count 3.83 10^6/uL (4.1-5.3); Red Cell Distribution Width 12.3 % (12.1-15.1)
[2021-11-17 05:23] LABS: Blood Urea Nitrogen 10 mg/dL (8-23); Calcium 8.5 mg/dL (8.5-10.5); Carbon Dioxide 21 mmol/L (22-29); Chloride 105 mmol/L (98-107); Creatinine Clr Calc Pharmacy 60.6998; Glucose 109 mg/dL (65-115); Osmolality Calculated 288 mOsm/kg (285-295); Sodium 139 mmol/L (136-145)
[2021-11-17] MEDS: flecainide 100 mg Tablet 50 MG PO (05:41)
[2021-11-17 08:38] VITALS: BP 120/59; PULSE 70; RESP 18; TEMP 37; O2SAT 93
--- NOTE | 2021-11-17 12:06 | PM.DCS ---
Discharge Providers Date of Admission: 11/15/21 13:55 Date of Discharge: November 17, 2021 Attending Provider at Admission: Nicholas Murray MD Attending Provider at Discharge: Nicholas Murray MD Primary Care Provider: Shakira Maxwell MD Diagnoses at Discharge Discharge Diagnosis (1) Acute appendicitis: Status: Acute Reason for Visit Reason for Visit: pain in abd right area Hospital Course Hospital Course HPI: Marge Burr is a 76 year old female with PMH of A.Fib on xaralto for Ac came in with c/o right lower quadrant abdominal pain started since yesterday morning, accompanied with nausea as well as dry heaves. Since yesterday the pain has progressively worsened. Upon arrival in the ER she was worked up for above-mentioned complaint Pertinent Imaging Studies: CT abdomen pelvis w con: 1.? Acute appendicitis. The inflammation extends minimally into the cecum and the terminal ileum. There is moderate distention of the cecum with soft tissue. This is probably fluid and fecal retention. Possibility of a superimposed mass resulting in appendicitis should be considered and evaluated during surgery. 2.? Prior cholecystectomy. Pertinent Labs : WBC: 14.9 H&H : 14.8/45 , PLT : 335 , Na: 140? K: 4? BUN/SCR : 10/0.9 Hospital Course : Patient was admitted for the management of acute appendicitis post laparoscopic appendectomy. During the hospital stay was also managed for A. fib, she was continued on flecainide as well as metoprolol, Eliquis has been kept on hold till 11/18. She responded well to above medical and surgical management and was discharged in stable condition to home. Physical Exam Const: COMMON NORMALS: patient oriented x3 HENMT: COMMON NORMALS: normocephalic and atraumatic HEAD & SCALP: normocephalic and atraumatic Resp: COMMON NORMALS: clear to auscultation bilaterally AUSCULTATION: clear to auscultation bilaterally Cardio: COMMON NORMALS: regular rate, regular rhythm, S1 normal heart sound present, S2 normal heart sound present, No gallops present (Cardio), No murmurs present (Cardio), No rub (Cardio) and Peripheral pulses 2+ throughout RATE: regular rate RHYTHM: regular rhythm HEART SOUNDS: S1 normal heart sound present and S2 normal heart sound present PERIPHERAL PULSES: Peripheral pulses 2+ throughout GI: AUSCULTATION: Yes normoactive bowel sounds RECTAL EXAM: deferred OTHER: Right lower quadrant tenderness present, no rebound tenderness. Extremity: COMMON NORMALS: no clubbing, cyanosis or edema and no pedal edema Neuro: COMMON NORMALS: patient oriented x3 Discharge Data Studies Completed and Pending Completed Studies During Hospitalization Category Date Time Status CT abdomen pelvis w con* [id number] Urgent Cat Scan 11/15/21 11:34 Completed Pending at discharge Category Date Time Status ES surgery / GI images Routine Exams 11/16/21 14:30 Taken Blood Culture Routine Lab 11/15/21 14:38 Results Pathology: Surgical [PTH] Routine Pth 11/16/21 15:46 Ordered Radiology Impressions Abdomen/Pelvis CT 11/15/21 11:34 IMPRESSION: 1. Acute appendicitis. The inflammation extends minimally into the cecum and the terminal ileum. There is moderate distention of the cecum with soft tissue. This is probably fluid and fecal retention. Possibility of a superimposed mass resulting in appendicitis should be considered and evaluated during surgery. 2. Prior cholecystectomy. Laboratory Results WBC 10.0 10^3/uL (4.0-10.0) 11/17/21 04:52 RBC 3.83 10^6/uL (4.1-5.3) L 11/17/21 04:52 Hgb 12.3 g/dL (11.5-15.3) 11/17/21 04:52 Hct 37.0 % (37.0-47.0) 11/17/21 04:52 MCV 96.6 fl (81-99) 11/17/21 04:52 MCH 32.1 pg (28.0-34.0) 11/17/21 04:52 MCHC 33.2 g/dL (30.0-36.0) 11/17/21 04:52 RDW 12.3 % (12.1-15.1) 11/17/21 04:52 Plt Count 296 10^3/cmm (130-400) D 11/17/21 04:52 MPV 9.7 fL (7.4-10.4) 11/17/21 04:52 Neut % (Auto) 88.6 % 11/17/21 04:52 Lymph % (Auto) 5.8 % 11/17/21 04:52 [place] % (Auto) 5.1 % 11/17/21 04:52 Eos % (Auto) 0.0 % 11/17/21 04:52 Baso % (Auto) 0.2 % 11/17/21 04:52 Neut # (Auto) 8.85 10^3/uL (1.8-7.7) H 11/17/21 04:52 Lymph # (Auto) 0.6 10^3/uL (0.8-4.8) L 11/17/21 04:52 [place] # (Auto) 0.5 10^3/uL (0.2-0.9) 11/17/21 04:52 Eos # (Auto) 0.0 10^3/uL (0.0-0.8) 11/17/21 04:52 Baso # (Auto) 0.0 10^3/uL (0.0-0.1) 11/17/21 04:52 Nucleated RBC % (auto) 0 % 11/17/21 04:52 Nucleated RBCs # 0.0 /100WBC 11/17/21 04:52 Sodium 139 mmol/L (136-145) 11/17/21 04:52 Potassium 4.0 mmol/L (3.5-5.1) 11/17/21 04:52 Chloride 105 mmol/L (98-107) 11/17/21 04:52 Carbon Dioxide 21 mmol/L (22-29) L 11/17/21 04:52 Anion Gap 17.0 (5-19) 11/17/21 04:52 BUN 10 mg/dL (8-23) 11/17/21 04:52 Creatinine 0.8 mg/dL (0.5-0.9) 11/17/21 04:52 GFR Calculation Not Reportable 11/17/21 04:52 Glucose 109 mg/dL (65-115) 11/17/21 04:52 Calculated Osmolality 288 mOsm/kg (285-295) 11/17/21 04:52 Calcium 8.5 mg/dL (8.5-10.5) 11/17/21 04:52 Total Bilirubin 0.7 mg/dL (0.15-1.2) 11/15/21 11:20 AST 54 U/L (0-32) H 11/15/21 11:20 ALT 69 U/L (0-33) H 11/15/21 11:20 Alkaline Phosphatase 100 IU/L (35-105) 11/15/21 11:20 Total Protein 8.4 g/dL (6.6-8.7) 11/15/21 11:20 Albumin 4.8 g/dL (3.5-5.2) 11/15/21 11:20 Globulin 3.6 g/dL (1.3-4.6) 11/15/21 11:20 Lipase 31 U/L (13-60) 11/15/21 11:20 Vitals Last Vital Signs Temp 98.6 F 11/17/21 08:38 Pulse 70 11/17/21 08:38 Resp 18 11/17/21 08:38 BP 120/59 11/17/21 08:38 Pulse Ox 93 11/17/21 08:38 Discharge Plan Discharge Patient Disposition: Home Condition: Stable Prescriptions: New hydrocodone-acetaminophen 5-325 mg tablet 1 tab PO Q6H PRN (Reason: pain) Qty: 20 0RF ondansetron HCl 4 mg tablet 4 mg PO Q8H 5 Days Qty: 15 0RF Colace 100 mg capsule 100 mg PO BID Qty: 30 0RF Continued flecainide 50 mg tablet 50 mg PO Q12H Qty: 180 3RF metoprolol tartrate 25 mg tablet 25 mg PO BID Qty: 180 3RF Held Xarelto 20 mg tablet 20 mg PO DAILY Qty: 90 3RF Hold Instructions: Resume on 11/19/21. Rx Instructions: must administer with evening meal Discharge Orders: Discharge Order (Routine); Ordered 11/16/21 Ordered By: Jez Alcaraz Referrals: Shakira Maxwell MD [Primary Care Provider] - 11/26/21 9:30 am Jez Alcaraz MD [Physician] - 2 weeks (please call with appointment) Patient Instructions: Hydrocodone/Acetaminophen (By mouth), Ondansetron (By mouth), Wound Dehiscence (DC), Laparoscopic Appendectomy (DC), Opioid Safety, Post Anesthesia Care Activity Restrictions/Additional Instructions: Diet Advance to normal diet as tolerated, increase fluid intake as much as possible. Activity Avoid strenuous activity for 2 weeks but continue with daily activities including walking as tolerated. Do not lift more than 10 pounds for 2 weeks Return to work/school You can return to work/ school whenever you feel ready as long as you don?t have to lift more than 10 pounds at work. If you have paperwork that needs to be completed for time off from work, please contact my office Driving You can resume driving once you stop using narcotic pain medications, and transition to non-opioid pain medications like Tylenol, Motrin, Aleve, etc. Medications Pain Take opioid pain medications as prescribed and transition to non-opioid pain medications like Tylenol, Motrin, Aleve etc. over the next few days. The goal of the pain medications is to make the pain bearable and not to be pain free since you recently had surgery. Resume all home medications after surgery as per the medication reconciliation list Nausea Nausea is common after surgery, take nausea medications as needed and stay on a liquid bland diet until nausea resolves. Constipation The combination of surgery, anesthesia and pain medications can result in constipation. Take stool softeners as prescribed. If you do not have a bowel movement in 3 days, please take an [id number] laxative like MiraLAX to address the constipation. Shower It is ok to shower but avoid getting the wound wet for 48 hours after surgery. Do not soak in bathtub, swimming pool or hot tub for 2 weeks. Wound care If glue has been used on your incisions after surgery, the glue on the incision will peel slowly over the next two weeks. The stitches used are dissolvable and will not need to be removed. Do not apply antibiotics or other medications on the incision Problems with the wound: you can develop some redness around the incision from bruising after surgery. If there is increasing pain, redness, tenderness around the incision with or without drainage, please contact my office to rule out an infection. Sometimes the skin at the incisions can separate, resulting in reopening of the wound. Cover the wound with antibiotic cream and sterile dressings and contact my office. Contact physician Call the office at [phone] during office hours or go the Emergency Room ?Fever to 100.4 or greater ?Shaking chills ?Pain that increases over time ?Redness, warmth, or pus draining from incision sites ?Persistent nausea or inability to take in liquids Discharge Attestations Time Spent in Discharge Care*: less than 30 min Specific Discharge Activities: educating patient, educating and/or supporting family/caregiver and discussing with pcp/other providers Status at Discharge: Cognitive status at discharge: cognitively intact, Behavioral status at discharge: cooperative, Quality Metrics Clinical Quality Measures [ No reported AMI, CVA or VTE this stay] Coding Level of Care Code Acute Chg FW DC note Diagnoses Acute appendicitis K35.80
== END 2021-11-17 08:39 | disposition home or self-care (01) | DRG 343 ==
LOC: ER 14:11 → MEDSURG 14:23
PROVIDERS: Surgery; Admitting Provider Internal Medicine; Emergency Provider Emergency Medicine; PCP Family Medicine; Visit Provider Internal Medicine
PROC: 0DTJ4ZZ Resection of Appendix, Percutaneous Endoscopic Approach (ICD-10-PCS; CPT 44970; principal; 2021-11-16 13:00)
DX: K35.80 Unspecified acute appendicitis (principal); I48.91 Unspecified atrial fibrillation; K21.9 Gastro-esophageal reflux disease without esophagitis; K59.00 Constipation, unspecified
CPT/HCPCS: 36415; 51702; 74177; 80048; 80053; 83690; 85025; 87040; 88304; 96365; 96375; 99285; J1100; J2405; J2543; J2704; J2710; J3010; J3490; J7030; Q9967

== ENCOUNTER → 2021-12-04 09:24 | Outpatient (BNVA) | payer MEDICARE, BC, SELFPAY | PROVIDERS: PCP Family Medicine; Visit Provider Surgery | DX: Z98.890 Other specified postprocedural states (principal); Z90.49 Acquired absence of other specified parts of digestive tract | CPT/HCPCS: 99024 ==

== ENCOUNTER 2022-01-31 13:42 | Outpatient (CLI) | payer MEDICARE, BC, SELFPAY ==
--- NOTE | 2022-01-31 13:50 | MM_ITS ---
WS: [id number] BILATERAL 3D TOMOSYNTHESIS DIGITAL SCREENING MAMMOGRAPHY WITH CAD CLINICAL INFORMATION: SCREENING HISTORY: Screening mammogram. No current complaints. COMPARISON: October 19, 2020 TECHNIQUE: Bilateral CC and MLO views. FINDINGS: Scattered fibroglandular densities bilaterally. A few tiny punctate calcifications. 6 mm slightly spi culated subareolar focal asymmetric density new from previous approximately 3:00 position at the areo la. Recommend ultrasound LEFT areola in further evaluation. RIGHT breast is unremarkable and unchanged. MM/[place] [id number] IMPRESSION: BI-RADS: 0-Incomplete: Need additional imaging evaluation FOLLOW UP: Need Additional Imaging Recommendation ultrasound LEFT breast subareola laterally near the 3:00 positio n.
== END 2022-01-31 13:43 | disposition home or self-care (01) ==
LOC: RAD 13:42
PROVIDERS: PCP Family Medicine; Visit Provider Family Medicine
DX: Z12.31 Encounter for screening mammogram for malignant neoplasm of breast (principal)
CPT/HCPCS: 77063; 77067

== ENCOUNTER 2022-02-15 12:46 | Outpatient (CLI) | payer MEDICARE, BC, SELFPAY ==
--- NOTE | 2022-02-15 12:54 | US_ITS ---
WS: [id number] ULTRASOUND BREAST LEFT TECHNIQUE: Ultrasound left breast focused area of concern. CLINICAL INFORMATION: ABNORMAL MAMMO COMPARISON: Outside ultrasound 2012. FINDINGS: Ultrasound LEFT breast at the 3 to 4:00 position 1 cm from the nipple.Previously described lobulated cyst at 3:00 position has decreased in size and nearly resolved. Small benign-appearing cyst measurin g approximately 3.4 x 3.3 x 2.1 mm at the 4:00 position. No other suspicious abnormalities. No lesion s to target for biopsy. Recommend return to annual screening mammography. US/US breast LT limited* [id number] IMPRESSION: BI-RADS 2 benign Return to annual screening mammography.
== END 2022-02-15 12:47 | disposition home or self-care (01) ==
LOC: RAD 12:46
PROVIDERS: PCP Family Medicine; Visit Provider Family Medicine
DX: R92.8 Other abnormal and inconclusive findings on diagnostic imaging of breast (principal)
CPT/HCPCS: 76642

== ENCOUNTER → 2022-08-08 13:43 | Outpatient (BNVA) | payer MEDICARE, SELFPAY | PROVIDERS: PCP Family Medicine; Visit Provider Internal Medicine Cardiovascular Disease | DX: I48.0 Paroxysmal atrial fibrillation (principal); R07.9 Chest pain, unspecified; K21.9 Gastro-esophageal reflux disease without esophagitis; Z79.01 Long term (current) use of anticoagulants; R00.1 Bradycardia, unspecified; I44.0 Atrioventricular block, first degree; R94.31 Abnormal electrocardiogram [ECG] [EKG] | CPT/HCPCS: 93005; 99213 ==

== ENCOUNTER 2023-03-03 09:13 | Outpatient (CLI) | payer MEDICARE, SELFPAY ==
--- NOTE | 2023-03-03 09:21 | MM_ITS ---
WS: [id number] VIEWS: MLO and CC views both breasts. 3D digital tomosynthesis is also included in this exam. Comparison made with prior exam of 08/14/2015, 09/25/2016, 02/12/2018, , 05/05/2019., 10/19/2020, 2. Findings: There was no sign of mass, architectural distortion or suspicious calcification in either breast. The re are scattered areas of fibroglandular density. Impression: MM/[place] [id number] BI-RADS: 2-Benign FOLLOW-UP: 1 Year Follow-up This mammogram was also analyzed by the Computer Aided Detection System R2 Imag e Film Laboratory Technician.
== END 2023-03-03 09:14 | disposition home or self-care (01) ==
PROVIDERS: PCP Family Medicine; Visit Provider Family Medicine
DX: Z12.31 Encounter for screening mammogram for malignant neoplasm of breast (principal)
CPT/HCPCS: 77063; 77067

== ENCOUNTER → 2023-08-21 10:23 | Outpatient (BNVA) | payer MEDICARE, SELFPAY | PROVIDERS: PCP Family Medicine; Visit Provider Podiatrist Foot & Ankle Surgery | DX: L60.8 Other nail disorders (principal) | CPT/HCPCS: 99203 ==

== ENCOUNTER → 2023-09-25 13:55 | Outpatient (BNVA) | payer MEDICARE, SELFPAY | PROVIDERS: PCP Family Medicine; Visit Provider Internal Medicine | DX: I48.0 Paroxysmal atrial fibrillation (principal); R07.9 Chest pain, unspecified; K21.9 Gastro-esophageal reflux disease without esophagitis; Z79.01 Long term (current) use of anticoagulants | CPT/HCPCS: 99214 ==

== ENCOUNTER 2023-12-31 06:00 | Outpatient (CLI) | payer MEDICARE, SELFPAY | END 2023-12-31 06:01 | disposition home or self-care (01) | LOC: RAD 02-29 08:05 | PROVIDERS: PCP Family Medicine; Visit Provider Psychiatry & Neurology Neurology | DX: I48.91 Unspecified atrial fibrillation (principal); R07.9 Chest pain, unspecified; Z90.49 Acquired absence of other specified parts of digestive tract | CPT/HCPCS: 86780 ==

== ENCOUNTER → 2023-12-31 08:42 | Outpatient (BNVA) | payer MEDICARE, SELFPAY | PROVIDERS: PCP Family Medicine; Visit Provider Psychiatry & Neurology Neurology | DX: M79.604 Pain in right leg (principal); M79.605 Pain in left leg; I48.91 Unspecified atrial fibrillation; G62.9 Polyneuropathy, unspecified; G63 Polyneuropathy in diseases classified elsewhere; Z90.49 Acquired absence of other specified parts of digestive tract; R07.9 Chest pain, unspecified; K21.9 Gastro-esophageal reflux disease without esophagitis; E55.9 Vitamin D deficiency, unspecified; R29.898 Other symptoms and signs involving the musculoskeletal system; R09.89 Other specified symptoms and signs involving the circulatory and respiratory systems; R20.2 Paresthesia of skin; I83.813 Varicose veins of bilateral lower extremities with pain; R29.90 Unspecified symptoms and signs involving the nervous system | CPT/HCPCS: 99203 ==

== ENCOUNTER 2024-01-05 10:57 | Outpatient (CLI) | payer MEDICARE, SELFPAY ==
[2024-01-06 12:55] LABS: RPR w(Moniotor) w/REFL Titer REACTIVE (NON-REACTIVE)
== END 2024-01-05 10:58 | disposition home or self-care (01) ==
PROVIDERS: PCP Family Medicine; Visit Provider Psychiatry & Neurology Neurology
DX: R20.2 Paresthesia of skin (principal); M79.604 Pain in right leg; M79.605 Pain in left leg; R29.898 Other symptoms and signs involving the musculoskeletal system; R09.89 Other specified symptoms and signs involving the circulatory and respiratory systems; I83.813 Varicose veins of bilateral lower extremities with pain
CPT/HCPCS: 36415; 84207; 86592

== ENCOUNTER 2024-01-14 09:40 | Outpatient (CLI) | payer MEDICARE, SELFPAY ==
--- NOTE | 2024-01-14 11:00 | MR_ITS ---
WS: [id number] MRI LUMBAR SPINE WITH CONTRAST TECHNIQUE: Sagittal T1, T2 and STIR imaging. Axial T1 and T2 imaging. Post gadolinium imaging was obt ained. 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 COMPARISON: None. FINDINGS: Mild lumbar curve. No acute compression. No high-grade central canal stenosis. A few incidental heman giomas in the lower thoracic and upper lumbar spine. L1-L2: Mild facet arthropathy. Spinal canal and foramen are patent. L2-L3: No significant disc bulging. Mild facet arthropathy. Spinal canal and foramen are patent. L3-L4: No significant disc bulging. Mild facet arthropathy. Spinal canal and foramen are patent. L4-L5: Mild annular bulging. Mild facet arthropathy. Slight effacement of the ventral thecal sac with narrowing of the subarticular recess. Mild RIGHT and no significant LEFT foraminal narrowing. L5-S1: Minimal annular bulging. Spinal canal and foramina are patent. Mild facet arthropathy. Visualized pelvic bony structures: Normal. Paravertebral soft tissues: Normal. 10 mm LEFT renal cyst. MR/MR lumbar spine wo/w con [id number] IMPRESSION: 1. Mild lumbar curve. No acute compression. No high-grade central canal stenos is. 2. Mild annular bulging L4-5 with slight narrowing of the subarticular recess bilaterally. Slight impingement of traversing L5 nerve roots. 3. Mild RIGHT L4-5 foraminal narrowing. 4. Mild facet arthropathy worse at L4-L5 and L5-S1. 5. No abnormal gadolinium enhancement.
[2024-01-14] MEDS: gadobenate dimeglumine 20 mL vial 14 ML IV (11:48)
== END 2024-01-14 09:41 | disposition home or self-care (01) ==
LOC: RAD 09:41
PROVIDERS: PCP Family Medicine; Visit Provider Psychiatry & Neurology Neurology
DX: Z90.49 Acquired absence of other specified parts of digestive tract; I48.91 Unspecified atrial fibrillation; R07.9 Chest pain, unspecified; R29.898 Other symptoms and signs involving the musculoskeletal system; D18.09 Hemangioma of other sites; M47.816 Spondylosis without myelopathy or radiculopathy, lumbar region; M51.37 Other intervertebral disc degeneration, lumbosacral region; M48.07 Spinal stenosis, lumbosacral region; M47.817 Spondylosis without myelopathy or radiculopathy, lumbosacral region; N28.1 Cyst of kidney, acquired
CPT/HCPCS: 36415; 72158; 80053; 82085; 82306; 82550; 82607; 83090; 83735; 83921; 84155; 84165; 84207; 84439; 84443; 84481; 84591; 85025; 85651; 86140; 86160; 86162; 86235; 86255; 86334; 86376; 86431; 86592; 93970; A9577

== ENCOUNTER → 2024-01-21 10:38 | Outpatient (BNVA) | payer MEDICARE, SELFPAY | PROVIDERS: PCP Family Medicine; Visit Provider Psychiatry & Neurology Neurology | DX: M79.604 Pain in right leg (principal); R20.2 Paresthesia of skin; M79.605 Pain in left leg; R29.898 Other symptoms and signs involving the musculoskeletal system; G62.89 Other specified polyneuropathies | CPT/HCPCS: 95910 ==

== ENCOUNTER → 2024-02-05 10:45 | Outpatient (BNVA) | payer MEDICARE, SELFPAY | PROVIDERS: PCP Family Medicine; Referring Provider Psychiatry & Neurology Neurology; Visit Provider Orthopaedic Surgery | DX: M48.062 Spinal stenosis, lumbar region with neurogenic claudication (principal); M48.07 Spinal stenosis, lumbosacral region | CPT/HCPCS: 72110; 99204 ==

== ENCOUNTER → 2024-02-09 14:00 | Outpatient (BNVA) | payer MEDICARE, SELFPAY | PROVIDERS: PCP Family Medicine; Visit Provider Psychiatry & Neurology Neurology | DX: G62.9 Polyneuropathy, unspecified (principal); R09.89 Other specified symptoms and signs involving the circulatory and respiratory systems; M79.604 Pain in right leg; M79.605 Pain in left leg; R29.898 Other symptoms and signs involving the musculoskeletal system; R20.2 Paresthesia of skin; I83.813 Varicose veins of bilateral lower extremities with pain; I48.91 Unspecified atrial fibrillation; Z79.01 Long term (current) use of anticoagulants | CPT/HCPCS: 99212 ==

== ENCOUNTER 2024-02-10 08:43 | Outpatient (CLI) | payer MEDICARE, SELFPAY ==
--- NOTE | 2024-02-10 08:45 | USCV_ITS ---
Marge Burr Age: 78 Gender: F : 1945 Exam Date: 02/10/2024 08:50 Ordering Phys: Toy Bradley M.D ([email or web address]) Technologist: CT Exam Location: [facility] – [place] Indication: Risk Factors: Previous Vascular Surgery: RIGHT LEFT BP: 141.0 / 68.00 BP: 144.0/ 71.00 0 0 Waveform Velocity (cm/s) Velocity (cm/s) Waveform Triphasic 127.2 Iliac Prox 158.1 Triphasic Triphasic 131.2 Iliac Mid 141.1 Triphasic Triphasic 143.2 Iliac Distal 137.8 Triphasic Triphasic 115.0 WOUND CARE COORDINATOR 120.0 Triphasic Biphasic 109.0 SFA Prox 123.0 Triphasic Biphasic 98.0 SFA Mid 125.0 Biphasic Biphasic 99.0 SFA Dist 67.0 Biphasic Triphasic 63.0 POP 62.0 Biphasic Biphasic 78.0 CUSTODIAN MANAGER 78.0 Biphasic Biphasic 74.0 DPA 65.0 Biphasic STEFANIE 1.1 1.0 FINDINGS Resting STEFANIE 1.0 on the right and 1.1 on the left Triphasic and biphasic arterial Doppler waveforms bilaterally Normal Doppler flow velocities bilaterally CONCLUSIONS 1. Normal resting ABIs bilaterally with near normal Doppler waveforms and velocities suggesting no significant arterial obstruction 2. Some features of arterial sclerosis Dr Marcy Perez MD [facility] (Electronically Signed) Final Date: 12 February 2024 00:12 S
== END 2024-02-10 08:44 | disposition home or self-care (01) ==
PROVIDERS: PCP Family Medicine; Visit Provider Internal Medicine
DX: M79.604 Pain in right leg (principal); M79.605 Pain in left leg
CPT/HCPCS: 93925

== ENCOUNTER 2024-03-04 10:21 | Outpatient (CLI) | payer MEDICARE, SELFPAY ==
--- NOTE | 2024-03-04 10:25 | MM_ITS ---
WS: [id number] SCREENING DIGITAL BREAST TOMOSYNTHESIS MAMMOGRAM WITH CAD HISTORY: SCREENING COMPARISON: 03/03/2023, 01/31/2022, and 10/19/2020 Bilateral CC and MLO with tomosynthesis and synthetic mammography submitted. Computer aided detection analyzed. Breast composition: There are scattered areas of fibroglandular density. Focal asymmetry in the anter ior RIGHT lateral breast is similar to the study from 2020. No new asymmetry. No clusters of calcific ations. No distortion. MM/[place] [id number] IMPRESSION: BI-RADS: 2 - Benign. FOLLOW UP: 1 Year Follow-up
== END 2024-03-04 10:22 | disposition home or self-care (01) ==
LOC: RAD 10:21
PROVIDERS: PCP Family Medicine; Visit Provider Family Medicine
DX: Z12.31 Encounter for screening mammogram for malignant neoplasm of breast (principal); R92.323 Mammographic fibroglandular density, bilateral breasts; N64.89 Other specified disorders of breast
CPT/HCPCS: 77063; 77067

== ENCOUNTER 2024-04-07 13:52 | Oncology outpatient (recurring) (ONCR) | payer MEDICARE, SELFPAY ==
[2024-04-07 14:18] LABS: Basophils # 0.1 10^3/uL (0.0-0.1); Basophils % 0.8 %; Eosinophils # 0.2 10^3/uL (0.0-0.8); Eosinophils % 2.9 %; Lymphocytes # 1.8 10^3/uL (0.8-4.8); Lymphocytes % 25.1 %; Mean Corpuscular HGB Conc 31.6 g/dL (30-55); Mean Corpuscular Hemoglobin 31.2 pg (27-33); Mean Corpuscular Volume 98.6 fl (85-98); Mean Platelet Volume 9.8 fL (7.4-10.4); Monocytes # 0.5 10^3/uL (0.2-0.9); Monocytes % 7.5 %; Neutrophils # 4.55 10^3/uL (1.8-7.7); Neutrophils % 63.6 %; Nucleated Red Blood Cells % 0 %; Platelet Count 327 10^3/cmm (157-399); Red Blood Count 4.36 10^6/uL (3.85-5.65); Red Cell Distribution Width 12.6 % (12.1-15.1); White Blood Count 7.17 10^3/uL (3.29-11.43)
[2024-04-07 14:38] LABS: Alanine Aminotransferase 48 U/L (0-33); Albumin Level 4.3 g/dL (3.5-5.2); Alkaline Phosphatase 89 U/L (35-105); Anion Gap 14.4 (5-19); Aspartate Amino Transferase 58 U/L (0-32); Blood Urea Nitrogen 16 mg/dL (8-23); Calcium 9.1 mg/dL (8.5-10.5); Carbon Dioxide 29 mmol/L (22-29); Chloride 104 mmol/L (98-107); Creatinine Clr Calc Pharmacy 52.4725; Globulin 3.2 g/dL (1.3-4.6); Glucose 79 mg/dL (65-115); Lactate Dehydrogenase 180 U/L (135-214); Osmolality Calculated 296 mOsm/kg (285-295); Potassium 4.4 mmol/L (3.5-5.1); Sodium 143 mmol/L (136-145); Total Bilirubin 0.2 mg/dL (0.15-1.2); Total Protein 7.5 g/dL (6.6-8.7)
== END 2024-04-22 23:59 | disposition home or self-care (01) ==
PROVIDERS: PCP Family Medicine; Visit Provider Internal Medicine Hematology & Oncology
DX: D89.2 Hypergammaglobulinemia, unspecified (principal); R77.2 Abnormality of alphafetoprotein; Z87.891 Personal history of nicotine dependence
CPT/HCPCS: 36415; 80053; 83615; 85025; 99204

== ENCOUNTER → 2024-06-08 08:30 | Outpatient (BNVA) | payer MEDICARE, SELFPAY | PROVIDERS: PCP Family Medicine; Visit Provider Psychiatry & Neurology Neurology | DX: R20.2 Paresthesia of skin (principal); I83.813 Varicose veins of bilateral lower extremities with pain; R09.89 Other specified symptoms and signs involving the circulatory and respiratory systems; R29.898 Other symptoms and signs involving the musculoskeletal system; M79.604 Pain in right leg; M79.605 Pain in left leg; I48.91 Unspecified atrial fibrillation; E55.9 Vitamin D deficiency, unspecified; R74.8 Abnormal levels of other serum enzymes; G62.9 Polyneuropathy, unspecified; R29.90 Unspecified symptoms and signs involving the nervous system | CPT/HCPCS: 82306; 82977; 83540; 83615; 84207; 84450; 84460; 99212 ==

== ENCOUNTER → 2024-07-01 12:49 | Outpatient (BNVA) | payer MEDICARE, SELFPAY | PROVIDERS: PCP Family Medicine; Visit Provider Internal Medicine | DX: I48.0 Paroxysmal atrial fibrillation (principal); R07.9 Chest pain, unspecified; K21.9 Gastro-esophageal reflux disease without esophagitis; Z87.891 Personal history of nicotine dependence; Z79.01 Long term (current) use of anticoagulants | CPT/HCPCS: 99214 ==

== ENCOUNTER 2024-07-13 10:30 | Oncology outpatient (recurring) (ONCR) | payer MEDICARE, SELFPAY ==
[2024-06-25 10:36] LABS: Basophils % 0.6 %; Eosinophils # 0.1 10^3/uL (0.0-0.8); Eosinophils % 1.9 %; Hematocrit 40.5 % (36-47); Lymphocytes # 1.6 10^3/uL (0.8-4.8); Lymphocytes % 21.6 %; Mean Corpuscular HGB Conc 33.3 g/dL (30-55); Mean Platelet Volume 9.5 fL (7.4-10.4); Monocytes # 0.4 10^3/uL (0.2-0.9); Monocytes % 5.1 %; Neutrophils # 5.09 10^3/uL (1.8-7.7); Neutrophils % 70.5 %; Nucleated Red Blood Cells % 0 %; Platelet Count 275 10^3/cmm (157-399); Red Blood Count 4.22 10^6/uL (3.85-5.65); Red Cell Distribution Width 12.6 % (12.1-15.1); White Blood Count 7.22 10^3/uL (3.29-11.43)
[2024-06-25 10:52] LABS: Alanine Aminotransferase 27 U/L (0-33); Albumin Level 4.1 g/dL (3.5-5.2); Alkaline Phosphatase 80 U/L (35-105); Anion Gap 16.9 (5-19); Aspartate Amino Transferase 42 U/L (0-32); Blood Urea Nitrogen 10 mg/dL (8-23); Calcium 9.2 mg/dL (8.5-10.5); Carbon Dioxide 25 mmol/L (22-29); Chloride 103 mmol/L (98-107); Globulin 2.9 g/dL (1.3-4.6); Glucose 104 mg/dL (65-115); Immunoglobulin IGA 363 mg/dL (70-400); Immunoglobulin IGG 1007 mg/dL (700-1600); Immunoglobulin IGM 57 mg/dL (40-230); Lactate Dehydrogenase 150 U/L (135-214); Osmolality Calculated 291 mOsm/kg (285-295); Potassium 3.9 mmol/L (3.5-5.1); Sodium 141 mmol/L (136-145); Total Bilirubin 0.3 mg/dL (0.15-1.2)
[2024-06-26 05:36] LABS: PROTEIN, TOTAL 7.2 g/dL (6.1-8.1)
[2024-06-26 07:10] LABS: Beta-2-Microglobulin 3.32 mg/L (< OR = 2.51)
[2024-06-29 14:39] LABS: KAPPA LIGHT CHAIN, FREE, SERUM 31.8 mg/L (3.3-19.4); KAPPA/LAMBDA LIGHT CHAINS FREE 1.61 (0.26-1.65); LAMBDA LIGHT CHAIN, FREE, SERU 19.7 mg/L (5.7-26.3)
[2024-06-30 10:00] LABS: ALBUMIN 4.1 g/dL (3.8-4.8); ALPHA 1 GLOBULIN 0.3 g/dL (0.2-0.3); ALPHA 2 GLOBULIN 0.8 g/dL (0.5-0.9); BETA 1 GLOBULIN 0.5 g/dL (0.4-0.6); BETA 2 GLOBULIN 0.5 g/dL (0.2-0.5)
[2024-06-30 21:24] LABS: Immunofixation Serum Normal pattern.
--- NOTE | 2024-07-13 | ECG_ITS ---
[facility] In[facility] Test Date: 2024-07-13 Pat Name: Marge Burr Department: Room: Gender: Female Periodontist: : 1945 Requested By: Toy Bradley Order Number: [id number] Bj MD: Toy Bradley M.D. Interpretive Statements LEXISCAN: Procedure: At the baseline, the blood pressure was 142/70 mmHg with a heart rate of 69 bpm. The electrocardiogram showed normal sinus rhythm, normal axis with normal ST and T's. The Lexiscan was infused over a period of 20 seconds. A total of 0.4 mg of Lexiscan was infused. The stress phase was continued for a total of 5 minutes. Heart rate was at the end of stress phase was 89 bpm and a blood pressure of 174/82mmHg. The EKG at the peak infusion revealed normal sinus rhythm with no significant ST-T wave changes. Sestamibi was injected 20 seconds after the Lexiscan infusion. Blood pressure at the end of recovery phase was 141/74 mmHg with a heart rate of 70 bpm. Conclusion: 1. Normal EKG response to Lexiscan infusion 2. No Lexiscan induced chest pain or cardiac arrhythmia. 3. Normal blood pressure and heart rate response. 4. Sestamibi/sestamibi perfusion scan pending; see separate report. Electronically Signed On 07-24-2024 22:58:50 [employer] by Toy Bradley M.D. [email or web address]
[2024-07-13 09:50] VITALS: BMI 24.6
--- NOTE | 2024-07-13 09:50 | NMCV_ITS ---
NM luc perf SPECT r/s* [id number] Marge Burr Age: 78 Gender: F : 1945 Exam Date: 07/13/2024 09:50 Ordering Phys: Toy Bradley M.D ([email or web address]) Technologist: SOHA Hoover Exam Location: [facility] Indications: cp STRESS TEST [facility] IMAGE PROTOCOL Rest/Stress 1 Lexiscan Day Radiopharmaceutical Dose (mCi) Administration Site Administered by Rest: Tc-99m 10.5 IV Ashley Dias [employer] SCIENCES PROFESSOR Sestamibi Stress:Tc-99m 32.6 IV Ashley Ferrergle, SOCIAL SCIENCES PROFESSOR Sestamibi Rest: 13-Jul-2024 60 Discovery 630 Stress: 13-Jul-2024 30 Discovery 630 0.4mg Lexiscan. Images obtained in supine and prone position. SPECT RESULTS Technical Quality: Good Raw Data Analysis: Normal Image Corrections: No attenuation or motion correction applied Summed Stress Score: 0 Summed Rest Score: 0 Summed Difference Score: 0 PERFUSION FINDINGS SPECT images demonstrate homogeneous tracer distribution throughout the myocardium. FUNCTIONAL RESULTS (calculated via Gated SPECT) Stress Image LV EF (%): 93 Stress EDV (mL):43 TID: 1.27 Stress ESV (mL):3 FUNCTIONAL FINDINGS: There is normal left ventricular systolic function. IMPRESSIONS 1. Normal myocardial perfusion imaging with no evidence of ischemia 2. LV systolic function is normal 3. TID ratio is elevated and is 1.27. However in absence of significant perfusion defect, significance of this finding is equivocal.. Toy Bradley MD (Electronically Signed) Final Date: 16 July 2024 20:20 S
[2024-07-13] MEDS: regadenoson 0.4 Mg/5 ml Syringe IVP (10:43)
[2024-07-13] MEDS: aminophylline 25 mg/mL SDV 20 mL IVP (10:54)
[2024-07-13 10:57] VITALS: BP 141/74; PULSE 77
== END 2024-07-23 23:59 | disposition home or self-care (01) ==
LOC: ONCMED 07-14 08:57
PROVIDERS: Internal Medicine Hematology & Oncology; PCP Family Medicine; Visit Provider Internal Medicine
DX: Z53.9 Procedure and treatment not carried out, unspecified reason (principal); R07.9 Chest pain, unspecified
CPT/HCPCS: 36415; 78452; 80053; 82232; 82784; 83615; 83883; 84155; 84165; 85025; 86334; 93017; 96374; 96375; 99214; A9500; J0280; J2785

== ENCOUNTER → 2024-10-05 14:28 | Outpatient (BNVA) | payer MEDICARE, SELFPAY | PROVIDERS: PCP Family Medicine; Visit Provider Psychiatry & Neurology Neurology | DX: R20.2 Paresthesia of skin (principal); I83.813 Varicose veins of bilateral lower extremities with pain; R09.89 Other specified symptoms and signs involving the circulatory and respiratory systems; R29.898 Other symptoms and signs involving the musculoskeletal system; M79.604 Pain in right leg; M79.605 Pain in left leg; I48.91 Unspecified atrial fibrillation; E55.9 Vitamin D deficiency, unspecified; G62.9 Polyneuropathy, unspecified; R29.90 Unspecified symptoms and signs involving the nervous system | CPT/HCPCS: 82306; 99212 ==

== ENCOUNTER 2024-10-06 09:53 | Oncology outpatient (recurring) (ONCR) | payer MEDICARE, SELFPAY ==
[2024-10-06 10:26] LABS: Basophils # 0.1 10^3/uL (0.0-0.1); Basophils % 0.9 %; Eosinophils # 0.1 10^3/uL (0.0-0.8); Hematocrit 42.6 % (36-47); Lymphocytes # 1.6 10^3/uL (0.8-4.8); Lymphocytes % 24.8 %; Mean Corpuscular HGB Conc 32.6 g/dL (30-55); Mean Corpuscular Hemoglobin 31.2 pg (27-33); Mean Corpuscular Volume 95.5 fl (85-98); Mean Platelet Volume 9.6 fL (7.4-10.4); Monocytes # 0.4 10^3/uL (0.2-0.9); Monocytes % 6.3 %; Neutrophils # 4.26 10^3/uL (1.8-7.7); Neutrophils % 65.7 %; Nucleated Red Blood Cells % 0 %; Platelet Count 281 10^3/cmm (157-399); Red Blood Count 4.46 10^6/uL (3.85-5.65); Red Cell Distribution Width 12.4 % (12.1-15.1); White Blood Count 6.49 10^3/uL (3.29-11.43)
[2024-10-06 10:46] LABS: Alanine Aminotransferase 23 U/L (0-33); Albumin Level 4.3 g/dL (3.5-5.2); Alkaline Phosphatase 89 U/L (35-105); Anion Gap 16.5 (5-19); Aspartate Amino Transferase 29 U/L (0-32); Blood Urea Nitrogen 11 mg/dL (8-23); Calcium 9.5 mg/dL (8.5-10.5); Carbon Dioxide 26 mmol/L (22-29); Chloride 103 mmol/L (98-107); Creatinine Clr Calc Pharmacy 57.9407; Globulin 3.5 g/dL (1.3-4.6); Glucose 101 mg/dL (65-115); Immunoglobulin IGA 378 mg/dL (70-400); Immunoglobulin IGG 1101 mg/dL (700-1600); Immunoglobulin IGM 61 mg/dL (40-230); Lactate Dehydrogenase 156 U/L (135-214); Osmolality Calculated 292 mOsm/kg (285-295); Potassium 4.5 mmol/L (3.5-5.1); Sodium 141 mmol/L (136-145); Total Bilirubin 0.3 mg/dL (0.15-1.2); Total Protein 7.8 g/dL (6.6-8.7)
[2024-10-07 17:04] LABS: KAPPA LIGHT CHAIN, FREE, SERUM 35.5 mg/L (3.3-19.4); KAPPA/LAMBDA LIGHT CHAINS FREE 1.68 (0.26-1.65); LAMBDA LIGHT CHAIN, FREE, SERU 21.1 mg/L (5.7-26.3); PROTEIN, TOTAL 7.2 g/dL (6.1-8.1)
[2024-10-07 21:34] LABS: ALBUMIN 4.1 g/dL (3.8-4.8); ALPHA 1 GLOBULIN 0.3 g/dL (0.2-0.3); ALPHA 2 GLOBULIN 0.8 g/dL (0.5-0.9); BETA 1 GLOBULIN 0.5 g/dL (0.4-0.6); BETA 2 GLOBULIN 0.5 g/dL (0.2-0.5)
== END 2024-10-20 23:59 | disposition home or self-care (01) ==
PROVIDERS: Nurse Practitioner; PCP Family Medicine; Visit Provider Internal Medicine
DX: D89.2 Hypergammaglobulinemia, unspecified (principal); Z87.891 Personal history of nicotine dependence
CPT/HCPCS: 36591; 80053; 82784; 83615; 83883; 84155; 84165; 85025; 99214

== ENCOUNTER → 2025-01-06 12:16 | Outpatient (BNVA) | payer MEDICARE, SELFPAY | PROVIDERS: PCP Family Medicine; Visit Provider Internal Medicine | DX: I48.91 Unspecified atrial fibrillation (principal); R07.9 Chest pain, unspecified; K21.9 Gastro-esophageal reflux disease without esophagitis | CPT/HCPCS: 99214 ==

== ENCOUNTER 2025-03-14 10:36 | Outpatient (CLI) | payer MEDICARE, SELFPAY ==
--- NOTE | 2025-03-14 10:35 | MM_ITS ---
WS: [id number] BILATERAL SCREENING DIGITAL TOMOSYNTHESIS MAMMOGRAM WITH CAD HISTORY: SCREEN COMPARISON: 03/04/2024, 03/03/2023 Bilateral CC and MLO views with tomosynthesis and synthetic mammography submitted. Computer aided detection analyzed. Breast composition: There are scattered areas of fibroglandular density. No suspicious masses, microcalcifications or architectural distortion. Benign calcifications in each breast. MM/MM scr BI tomosynthesis [id number] IMPRESSION: BI-RADS: 2 - Benign. FOLLOW UP: 1 Year Follow-up
== END 2025-03-14 10:37 | disposition home or self-care (01) ==
LOC: RAD 10:36
PROVIDERS: PCP Family Medicine; Visit Provider Family Medicine
DX: Z12.31 Encounter for screening mammogram for malignant neoplasm of breast (principal); R92.323 Mammographic fibroglandular density, bilateral breasts; R92.1 Mammographic calcification found on diagnostic imaging of breast
CPT/HCPCS: 77063; 77067